=== PATIENT | male | born 1965 | race Caucasian/White ===

== ENCOUNTER 2020-12-28 18:30 | Emergency (ER) | payer OTHER ==
[2020-12-28 18:36] VITALS: BMI 24.8
[2020-12-28] MEDS ORDERED: predniSONE 20 MG TABLET (UD) PO ONE (18:41)
[2020-12-28] MEDS ORDERED: diphenhydrAMINE HCL 25 MG CAPSULE (FP) PO ONE (18:41)
[2020-12-28] MEDS ORDERED: predniSONE 20 MG TABLET (UD) ONE (18:43)
[2020-12-28] MEDS ORDERED: diphenhydrAMINE HCL 50 MG CAPSULE ONE (18:43)
[2020-12-28 19:38] VITALS: TEMP 98.8
[2020-12-28 20:37] VITALS: PULSE 72
[2020-12-28 20:39] VITALS: BP 124/74
== END 2020-12-28 20:40 | disposition home or self-care (01) ==
LOC: FER 18:30
DX: T63.441A Toxic effect of venom of bees, accidental (unintentional), initial encounter (principal)
CPT/HCPCS: 99283-25